=== PATIENT | female | born 1985 | race Caucasian/White ===

== ENCOUNTER 2018-11-23 19:48 | Emergency (ER) | payer MEDICAID ==
[~2018-11-23] VITALS: Ht 152.4 cm; Wt 56.2 kg
--- NOTE | 2018-11-23 20:12 | NUR ---
Patient ambulated with stable gait. A/Ox4. Patient speaks little bengali, at bedside for translation. Speech is clear, speaks in complete sentences. Patient came in for c/o wound on tongue on the distal portion. Per , he suspects that it is trauma from eating sunflower seeds but is unsure. Respiratory even and unlabored, no cough, no sob. No cardiovascular distress noted. Patient in bed at lowest position, side rails upx2, call light within reach.
[2018-11-23] MEDS ORDERED: MISCELLANEOUS MED XX ONE (20:30)
--- NOTE | 2018-11-23 20:42 | NUR ---
Patient discharged to home in stable conditon. Written and verbal after care instructions given. Patient verbalizes understanding of instructions. Patient ambulated with stable gait.
[2018-11-23] MEDS ORDERED: TRIAMCINOLONE ACET 0.1% ORABAS 5 GM TUBE DT ONE (20:45)
== END 2018-11-23 20:44 | disposition home or self-care (01) ==
LOC: ER 19:48
DX: K14.0 Glossitis (principal)
CPT/HCPCS: A4663

== ENCOUNTER 2020-01-22 15:41 | Emergency (ER) | payer MEDICAID ==
[~2020-01-22] VITALS: Ht 152.4 cm; Wt 54.4 kg
--- NOTE | 2020-01-22 15:50 | NUR ---
Dr. Lo at bedside for MSE
[2020-01-22] MEDS ORDERED: TDAP DIPH,PERTUSS,TET VAC/PF 0.5 ML DISP.SYRIN IM ONE (16:00)
[2020-01-22 16:07] VITALS: BP 115/71
--- NOTE | 2020-01-22 16:09 | NUR ---
Patient discharged to home in stable condition. Written and verbal after care instructions given. Patient verbalizes understanding of instructions. Stressed follow up or return to ER for worsening s/s. patient ambulated with steady gait. no distress noted
== END 2020-01-22 16:11 | disposition home or self-care (01) ==
LOC: ER 15:42
DX: S61.311A Laceration without foreign body of left index finger with damage to nail, initial encounter (principal); W26.0XXA Contact with knife, initial encounter; Y92.89 Other specified places as the place of occurrence of the external cause
CPT/HCPCS: A4663